=== PATIENT | male | born 1975 | race Caucasian/White ===

== ENCOUNTER → 2023-11-16 | Outpatient (CLI) | payer BC ==
[~2023-11-16] MED LIST: ALLEGRA30 MG PO; SINGULAIR 110 MG/TAB PO
== END ==
LOC: DIA.ED 08:56
DX: E11.9 Type 2 diabetes mellitus without complications (principal); E78.5 Hyperlipidemia, unspecified; I10 Essential (primary) hypertension
CPT/HCPCS: G0108